=== PATIENT | male | born 1940 | race Caucasian/White ===

== ENCOUNTER 2023-11-14 14:38 | Outpatient (CLI) | payer MEDICARE | END 2023-11-14 14:39 | disposition home or self-care (01) | LOC: BICRAD 14:38 | PROVIDERS: ATTEND Family Medicine | DX: M54.2 Cervicalgia (principal); M47.812 Spondylosis without myelopathy or radiculopathy, cervical region | CPT/HCPCS: 72040 ==

== ENCOUNTER 2024-02-02 12:32 | Day surgery (SDC) | payer OTHER ==
[2024-02-02] MEDS ORDERED: Sodium Bicarbonate 2.5 MEQ/5 ML SDV ONE (12:49)
[2024-02-02] MEDS ORDERED: Lidocaine 1% PF 5 ML VIAL ONE (12:49)
== END 2024-02-02 15:00 | disposition home or self-care (01) ==
LOC: ULT 12:32
PROVIDERS: ATTEND Internal Medicine
PROC: 0JB83ZX Excision of Abdomen Subcutaneous Tissue and Fascia, Percutaneous Approach, Diagnostic (ICD-10-PCS; principal; 2024-02-02)
DX: R93.89 Abnormal findings on diagnostic imaging of other specified body structures (principal); C24.9 Malignant neoplasm of biliary tract, unspecified; C76.2 Malignant neoplasm of abdomen; E78.00 Pure hypercholesterolemia, unspecified; Z90.49 Acquired absence of other specified parts of digestive tract; Z98.890 Other specified postprocedural states; Z79.899 Other long term (current) drug therapy
CPT/HCPCS: 20206; 76942; 88305; 88333; 88334; 88341; 88342

== ENCOUNTER 2024-03-28 11:07 | Outpatient (CLI) | payer OTHER | END 2024-03-28 11:08 | disposition home or self-care (01) | LOC: BICRAD 11:07 | PROVIDERS: ATTEND Internal Medicine | DX: C24.9 Malignant neoplasm of biliary tract, unspecified (principal) | CPT/HCPCS: 36415; 71046; 80053; 83735; 84439; 84443 ==

== ENCOUNTER 2024-05-04 10:15 | Outpatient (CLI) | payer OTHER | END 2024-05-04 10:16 | disposition home or self-care (01) | LOC: PET 10:15 | PROVIDERS: ATTEND Internal Medicine | DX: C24.9 Malignant neoplasm of biliary tract, unspecified (principal); R97.8 Other abnormal tumor markers; M61.9 Calcification and ossification of muscle, unspecified | CPT/HCPCS: 78815; A9552 ==

== ENCOUNTER 2025-03-07 08:40 | Day surgery (SDC) | payer OTHER ==
[2025-03-07] MEDS ORDERED: Acetaminophen 500 MG TAB ONE (09:01)
[2025-03-07] MEDS ORDERED: diphenhydrAMINE 25 MG CAP ONE (09:02)
[2025-03-07] MEDS: diphenhydrAMINE 25 MG CAP PO SCH (09:21)
[2025-03-07] MEDS: Acetaminophen 500 MG TAB PO SCH (09:22)
[2025-03-07 10:11] VITALS: BP 116/58; TEMP 98.2
== END 2025-03-07 10:23 | disposition home or self-care (01) ==
LOC: ONC/OP 08:40
PROVIDERS: ATTEND Internal Medicine
DX: D69.6 Thrombocytopenia, unspecified (principal); D64.9 Anemia, unspecified
CPT/HCPCS: 36430; 86850; 86900; 86901; J1642; P9035

== ENCOUNTER 2025-04-01 08:00 | Outpatient (CLI) | payer OTHER | END 2025-04-01 08:01 | disposition home or self-care (01) | LOC: PET 08:00 | PROVIDERS: ATTEND Internal Medicine | DX: D70.8 Other neutropenia (principal); C24.9 Malignant neoplasm of biliary tract, unspecified; R97.8 Other abnormal tumor markers; C23 Malignant neoplasm of gallbladder; R19.09 Other intra-abdominal and pelvic swelling, mass and lump | CPT/HCPCS: 78815; A9552 ==

== ENCOUNTER 2025-04-23 08:57 | Day surgery (SDC) | payer OTHER ==
[2025-04-23] MEDS ORDERED: diphenhydrAMINE 25 MG CAP ONE (09:51)
[2025-04-23] MEDS ORDERED: Acetaminophen 500 MG TAB ONE (09:51)
[2025-04-23] MEDS: Acetaminophen 500 MG TAB PO SCH (09:52)
[2025-04-23] MEDS: diphenhydrAMINE 25 MG CAP PO SCH (09:52)
[2025-04-23 10:14] VITALS: TEMP 97.8
[2025-04-23 11:17] VITALS: BP 131/60
== END 2025-04-23 11:08 | disposition home or self-care (01) ==
LOC: ONC/OP 08:57
PROVIDERS: ATTEND Internal Medicine
DX: D69.6 Thrombocytopenia, unspecified (principal); D64.9 Anemia, unspecified
CPT/HCPCS: 36430; 86850; 86900; 86901; J1642; P9035